=== PATIENT | male | born 1965 ===

== ENCOUNTER 2020-02-08 15:04 | Observation (INO) ==
[2020-02-08] MEDS ORDERED: GLUCAGON 1 MG VIAL IM PRN (18:10)
[2020-02-08] MEDS ORDERED: DEXTROSE 50% 25 GM/50 ML VIAL IV PRN (18:10)
[2020-02-08 18:52] LABS: Basophils % 0.1 % (0.0-0.8); Eosinophils # 0.1 10*3/uL (0.0-0.87); Eosinophils % 1.5 % (0.00-10.9); Hematocrit 38.2 VOL% (42.0-52.0); Hemoglobin 13.7 GM/DL (14.0-18.0); Immature Granulocytes % 0.5 %; Immature Granulocytes Absolute 0.04 #; Lymphocytes # 1.6 10*3/uL (1.4-4.0); Lymphocytes % 19.9 % (21.2-54.2); Mean Corpuscular HGB Conc 35.9 GM/DL (32-36); Mean Corpuscular Volume 90.7 FL (87-102); Mean Platelet Volume 9.7 FL (9.6-12.0); Monocytes % 5.9 % (1.7-12.7); Neutrophils % 72.1 % (38.7-73.9); Platelet Count 78 T/CUMM (130-400); Red Blood Count 4.21 MC/CUMM (3.8-5.5); Red Cell Distribution Width 13.3 % (9.3-17.3)
[2020-02-08 19:10] LABS: Albumin 2.6 G/DL (3.4-5.0); Bilirubin,Total 2.6 MG/DL (0.2-1.0); Calcium 8.3 MG/DL (8.5-10.1); Osmolality,Calculated 269.1 MOS/KG (273-304); Total Protein 8.1 G/DL (6.4-8.3)
[2020-02-08] MEDS ORDERED: MAGNESIUM SULF RIDER 4 GM in PREMIX 1 EACH IV ONE (20:00)
[2020-02-08] MEDS: carvediloL 12.5 MG TABLET PO SCH (21:11)
[2020-02-09 06:40] LABS: Basophils % 0.3 % (0.0-0.8); Eosinophils # 0.3 10*3/uL (0.0-0.87); Eosinophils % 5.1 % (0.00-10.9); Hematocrit 34.5 VOL% (42.0-52.0); Immature Granulocytes % 0.7 %; Immature Granulocytes Absolute 0.04 #; Lymphocytes # 1.8 10*3/uL (1.4-4.0); Lymphocytes % 30.5 % (21.2-54.2); Mean Corpuscular HGB Conc 34.8 GM/DL (32-36); Mean Corpuscular Volume 92.7 FL (87-102); Mean Platelet Volume 9.8 FL (9.6-12.0); Monocytes % 8.9 % (1.7-12.7); Neutrophils % 54.5 % (38.7-73.9); Red Blood Count 3.72 MC/CUMM (3.8-5.5); Red Cell Distribution Width 13.6 % (9.3-17.3); White Blood Count 5.9 T/CUMM (4-12)
[2020-02-09 06:42] LABS: Platelet Count 71 T/CUMM (130-400)
[2020-02-09 07:27] LABS: Albumin 2.3 G/DL (3.4-5.0); Calcium 7.9 MG/DL (8.5-10.1); Osmolality,Calculated 271.8 MOS/KG (273-304); Total Protein 7.4 G/DL (6.4-8.3)
[2020-02-09 07:39] LABS: Hypochromasia Slight; Microcytosis 1+; Platelet Estimate Decreased
[2020-02-09] MEDS: carvediloL 12.5 MG TABLET PO SCH (08:40)
[2020-02-09] MEDS: lisinopriL 5 MG TABLET PO SCH (08:40)
[2020-02-09] MEDS: POTASSIUM CHLORIDE 20 MEQ TABLET PO PRN ×3 (09:50→17:43)
[2020-02-09] MEDS: METOPROLOL TARTRATE 50 MG TABLET PO SCH (20:41)
[2020-02-10 05:37] LABS: Basophils % 0.2 % (0.0-0.8); Eosinophils # 0.5 10*3/uL (0.0-0.87); Eosinophils % 7.6 % (0.00-10.9); Hematocrit 35.1 VOL% (42.0-52.0); Hemoglobin 11.9 GM/DL (14.0-18.0); Immature Granulocytes % 0.2 %; Immature Granulocytes Absolute 0.01 #; Lymphocytes # 1.9 10*3/uL (1.4-4.0); Lymphocytes % 31.4 % (21.2-54.2); Mean Corpuscular HGB Conc 33.9 GM/DL (32-36); Mean Corpuscular Volume 95.4 FL (87-102); Mean Platelet Volume 10.1 FL (9.6-12.0); Monocytes % 9.4 % (1.7-12.7); Neutrophils % 51.2 % (38.7-73.9); Platelet Count 72 T/CUMM (130-400); Red Blood Count 3.68 MC/CUMM (3.8-5.5); Red Cell Distribution Width 13.7 % (9.3-17.3); White Blood Count 6.2 T/CUMM (4-12)
[2020-02-10 05:51] LABS: Calcium 8.5 MG/DL (8.5-10.1); Osmolality,Calculated 275.5 MOS/KG (273-304)
[2020-02-10 05:59] LABS: Hypochromasia 1+; Microcytosis 1+; Platelet Estimate Decreased
[2020-02-10] MEDS: METOPROLOL TARTRATE 50 MG TABLET PO SCH (08:34)
[2020-02-10] MEDS: lisinopriL 5 MG TABLET PO SCH (08:34)
[2020-02-10 12:12] VITALS: BP 104/58
== END 2020-02-10 15:15 | disposition home or self-care (01) ==
LOC: N.TELEN → SUATTDRO 17:14
PROVIDERS: ADMIT Internal Medicine; ATTEND Internal Medicine